=== PATIENT | male | born 1990 | race Caucasian/White ===

== ENCOUNTER 2022-06-08 11:18 | Emergency (ER) | payer MEDICAID ==
[2022-06-08] MEDS: hydrOXYzine HCl 25 MG Tab PO ONE (11:39)
[2022-06-08] MEDS: GI Cocktail Oral Solution 30 ML PO ONE (11:40)
[2022-06-08] MEDS: hydrOXYzine HCl 25 MG Tab ONE (12:10)
[2022-06-08] MEDS: Sodium Chloride 0.9% 1,000 ML IV ONE (12:11)
[2022-06-08 13:03] LABS: ESTIMATED GFR 100 mL/min (>60)
== END 2022-06-08 13:15 | disposition home or self-care (01) ==
LOC: LB.ED 11:18
DX: R10.84 Generalized abdominal pain (principal); F10.10 Alcohol abuse, uncomplicated; F15.10 Other stimulant abuse, uncomplicated; F41.9 Anxiety disorder, unspecified; F32.A Depression, unspecified; R74.8 Abnormal levels of other serum enzymes; Z88.0 Allergy status to penicillin; Z72.0 Tobacco use
CPT/HCPCS: 36415; 80053; 83690; 85025; 96360; 99284; A9270; J7030

== ENCOUNTER 2024-10-24 00:54 | Emergency (ER) | payer MEDICAID ==
[2024-10-24] MEDS ORDERED: Sodium Chloride 0.9% 10 ML Syringe FLUSH PRN (01:07)
[2024-10-24] MEDS: diazePAM 5 MG/ML MDV IVPUSH ONE (01:36)
[2024-10-24 02:15] LABS: MEAN PLATELET VOLUME 10.5 fL (6.0-10.0); PLATELET COUNT,PLT 194.0 K/uL (150-400); RED BLOOD CELL COUNT 5.17 M/uL (4.50-6.50); RED CELL DISTRIBUTION WIDTH 12.6 % (11.0-16.0); WHITE BLOOD CELL COUNT,WBC 11.4 K/uL (4.0-11.0)
[2024-10-24 02:25] LABS: AMPHETAMINES SCREEN, URINE POSITIVE (NEGATIVE)
[2024-10-24 02:26] LABS: METHADONE SCREEN, URINE NEGATIVE (NEGATIVE); METHAMPHETAMINES SCREEN, URINE POSITIVE (NEGATIVE); OXYCODONE SCREEN,URINE NEGATIVE (NEGATIVE); THC SCREEN,URINE 50 NG/ML NEGATIVE (NEGATIVE)
[2024-10-24 02:30] LABS: BLOOD UREA NITROGEN,BUN 13 mg/dL (8-26); CARBON DIOXIDE,CO2 29.0 mmol/L (21.0-32.0); CHLORIDE,CL 103 mmol/L (98-107); CREATININE 0.87 mg/dL (0.70-1.30); EST CRCL DRUG DOSING (CG) 117.38 mL/min; ESTIMATED GFR 115 mL/min (>60); GLUCOSE RANDOM 92 mg/dL (74-100); POTASSIUM,K 3.7 mmol/L (3.5-5.1); SODIUM,NA 141 mmol/L (136-145)
[2024-10-24 02:45] LABS: TROPONIN I HIGH SENSITIVITY 5.9 pg/ml (<=60.4)
[2024-10-24 02:46] LABS: ETHANOL BLOOD MEDICAL < 3.0 mg/dL (<3.0)
== END 2024-10-24 17:55 ==
LOC: LB.ED 00:54
DX: F15.10 Other stimulant abuse, uncomplicated (principal); F43.10 Post-traumatic stress disorder, unspecified; F41.8 Other specified anxiety disorders; Z79.899 Other long term (current) drug therapy; Z88.0 Allergy status to penicillin
CPT/HCPCS: 36415; 80048; 80307; 83735; 84484; 85027; 93005; 93010; 96361; 96374; 99285; 99285-25; A0425; A0428; J3360; J7030